=== PATIENT | female | born 1970 | race Caucasian/White ===

== ENCOUNTER 2016-05-21 10:19 | Emergency (ER) | payer MEDICAID, OTHER ==
[2016-05-21 10:29] VITALS: TEMP 98.7
--- NOTE | 2016-05-21 12:15 | C.PDOC ---
History Of Present Illness 45 year old female presents to the ED with complaints of elevated blood pressure today. Patient states she was checking her blood pressure routinely today at the pharmacy when she saw it was elevated and came in for evaluation. She has no physical complaints at this time and denies headache, visual changes , nausea, vomiting, weakness, numbness, chest pain, SOB, or swelling. Time Seen by Provider: 05/21/16 11:29 Chief Complaint (Nursing): Medical Clearance History Per: Patient History/Exam Limitations: no limitations Onset/Duration Of Symptoms: Hrs Current Symptoms Are (Timing): Still Present Pain Scale Rating Of: 0 Past Medical History Reviewed: Historical Data, Nursing Documentation, Vital Signs Vital Signs: Last Vital Signs Temp 98.7 F 05/21/16 10:28 Pulse 82 05/21/16 12:32 Resp 18 05/21/16 12:32 BP 138/81 05/21/16 12:32 Pulse Ox 99 05/21/16 12:32 - Medical History PMH: Asthma Family History: States: Unknown Family Hx - Social History Hx Tobacco Use: No Hx Alcohol Use: No Hx Substance Use: No - Immunization History Hx Tetanus Toxoid Vaccination: No Hx Influenza Vaccination: Yes Hx Pneumococcal Vaccination: No Review Of Systems Except As Marked, All Systems Reviewed And Found Negative. Constitutional: Positive for: Other (+Elevated blood pressure). Negative for: Fever, Chills, Weakness Eyes: Negative for: Vision Change Cardiovascular: Negative for: Chest Pain Respiratory: Negative for: Shortness of Breath Gastrointestinal: Negative for: Nausea, Vomiting Neurological: Negative for: Weakness, Numbness, Headache, Dizziness Physical Exam - Physical Exam Appears: Non-toxic, No Acute Distress Skin: Normal Color, Warm, Dry Head: Atraumatic, Normacephalic Eye(s): bilateral: Normal Inspection, PERRL, EOMI Oral Mucosa: Moist Neck: Normal ROM, Supple Chest: Symmetrical, No Deformity Cardiovascular: Rhythm Regular, No Friction Rub, No Murmur Respiratory: Normal Breath Sounds, No Accessory Muscle Use, No Rales, No Rhonchi , No Wheezing Gastrointestinal/Abdominal: Soft, No Tenderness Back: Normal Inspection, No CVA Tenderness Extremity: Normal ROM, No Swelling Neurological/Psych: Oriented x3, Normal Speech, Normal Cognition, Normal Motor Gait: Steady ED Course And Treatment O2 Sat by Pulse Oximetry: 97 (Room air) Pulse Ox Interpretation: Normal Medical Decision Making Medical Decision Making: On re-exam, the patient still feels well and asymptomatic. Disposition - Disposition Referrals: Amrik Orozco MD [Staff Provider] - Disposition: HOME/ ROUTINE Disposition Time: 12:30 Condition: GOOD Additional Instructions: Follow up with the medical doctor/clinic within 1 weeks for BP recheck. Return if worsened. Instructions: Hypertension (DC) Print Language: DIVEHI - Clinical Impression Clinical Impression: Medical assessment, Hypertension - PA / FIRMWARE DEVELOPER / Resident Statement MD/DO has reviewed & agrees with the documentation as recorded. - Scribe Statement The provider has reviewed the documentation as recorded by the Scribe Fco Mendes. All medical record entries made by the Scribe were at my direction and personally dictated by me. I have reviewed the chart and agree that the record accurately reflects my personal performance of the history, physical exam, medical decision making, and the department course for this patient. I have also personally directed, reviewed, and agree with the discharge instructions and disposition.
--- NOTE | 2016-05-21 12:15 | C.PDOC ---
Time Seen by Provider: 05/21/16 11:29 Chief Complaint (Nursing): Medical Clearance Past Medical History Vital Signs: Last Vital Signs Temp 98.7 F 05/21/16 10:28 Pulse 94 H 05/21/16 10:28 Resp 16 05/21/16 10:28 BP 169/94 H 05/21/16 10:28 Pulse Ox 97 05/21/16 10:28 - Medical History PMH: Asthma Family History: States: Unknown Family Hx - Social History Hx Tobacco Use: No Hx Alcohol Use: No Hx Substance Use: No - Immunization History Hx Tetanus Toxoid Vaccination: No Hx Influenza Vaccination: Yes Hx Pneumococcal Vaccination: No ED Course And Treatment O2 Sat by Pulse Oximetry: 97
[2016-05-21 12:33] VITALS: BP 138/81; PULSE 82; RESP 18
[2016-05-25 04:00] VITALS: O2SAT 97
== END 2016-05-21 12:40 | disposition home or self-care (01) ==
LOC: C.ER 10:19
DX: I10 Essential (primary) hypertension (principal)